=== PATIENT | female | born 1985 | race Caucasian/White ===

== ENCOUNTER 2020-09-14 08:46 | Outpatient (REF) | payer OTHER, SELFPAY ==
--- NOTE | 2020-09-14 16:56 | PFT_ITS ---
FLOWS: FEV1 of 95% of predicted at 3.18 L. FVC 101% of predicted at 4.17 L. FEV1 to FVC ratio of 0.76. No bronchodilator response. LUNG VOLUMES: Total lung capacity 104% of predicted at 5.73 L. Residual volume 98% of predicted at 1.63 L. Slow vital capacity 106% of predicted at 4.10 L. Residual volume 45% of predicted at 0.63 L. Diffusion capacity is normal. IMPRESSION: No obstructive or restrictive ventilatory defect. No bronchodilator response. Decreased expiratory reserve volume suggests extrathoracic restriction likely secondary to abdominal obesity. Huber Toney MD AP/MODL / [id number]
== END 2020-09-14 08:47 | disposition home or self-care (01) ==
LOC: HO.RESP 08:46
PROVIDERS: PCP Nurse Practitioner Family; Visit Provider Internal Medicine
DX: J45.909 Unspecified asthma, uncomplicated (principal); R05 Cough
CPT/HCPCS: 94060; 94727; 94729

== ENCOUNTER 2021-01-29 08:53 | Outpatient (REF) | payer OTHER, SELFPAY ==
[2021-01-29 12:20] LABS: TSH reflex Free T4 1.21 uIU/mL (0.32-4.0)
[2021-01-29 12:45] LABS: Alanine Aminotransferase 48 U/L (0-31); Albumin Level 4.2 g/dL (3.5-5.0); Alkaline Phosphatase 100 U/L (39-117); Anion Gap 12 (12-20); Aspartate Amino Transferase 36 U/L (5-31); Bilirubin Total 0.5 mg/dL (0.0-1.0); Blood Urea Nitrogen 8 mg/dL (9-16); Carbon Dioxide 28 mmol/L (22-29); Chloride 103 mmol/L (96-108); Cholesterol 224 mg/dL; Estimated Glomerular Filt Rate > 60; Glucose Fasting 86 mg/dL (60-99); HDL Cholesterol 44 mg/dL; LDL Cholesterol Calculated 156 mg/dl; Potassium 4.2 mmol/L (3.3-5.1); Sodium 139 mmol/L (135-145); Total Protein 7.6 g/dL (6.5-8.0); Triglycerides 122 mg/dL
== END 2021-01-29 08:54 | disposition home or self-care (01) ==
LOC: HO.HMGCLDS 08:53
PROVIDERS: PCP Nurse Practitioner Family; Visit Provider Nurse Practitioner Family
DX: Z00.00 Encounter for general adult medical examination without abnormal findings (principal)
CPT/HCPCS: 36415; 80053; 80061; 84443

== ENCOUNTER → 2021-03-01 13:18 | Outpatient (BNVA) | payer OTHER, SELFPAY | PROVIDERS: PCP Nurse Practitioner Family; Visit Provider Hospitalist ==

== ENCOUNTER → 2021-03-31 08:48 | Outpatient (REF) | payer OTHER, SELFPAY | LOC: HO.SL 08:48 | PROVIDERS: PCP Nurse Practitioner Family; Visit Provider Hospitalist | DX: G47.30 Sleep apnea, unspecified (principal) | CPT/HCPCS: 95806 ==

== ENCOUNTER → 2021-04-21 09:23 | Outpatient (BNVA) | payer OTHER, SELFPAY | PROVIDERS: PCP Nurse Practitioner Family; Visit Provider Hospitalist ==

== ENCOUNTER → 2021-08-27 10:02 | Outpatient (BNVA) | payer OTHER, SELFPAY | PROVIDERS: PCP Nurse Practitioner Family; Visit Provider Hospitalist ==

== ENCOUNTER 2021-10-01 07:45 | Outpatient (REF) | payer OTHER, SELFPAY ==
[2021-10-01 11:41] LABS: Appearance Urine CLOUDY; Color Urine YELLOW; Glucose Urine UA NEG (NEG); Leukocyte Esterase Urine NEG (NEG); Nitrite Urine NEG (NEG); Specific Gravity - Urine >= 1.030 (1.005-1.025); UACC Culture Trigger NO; Urine Blood TRACE (NEG); Urine Ketones NEG (NEG); Urine Protein TRACE MG/DL (NEG-TRACE)
[2021-10-01 11:48] LABS: Alanine Aminotransferase 15 U/L (0-31); Alkaline Phosphatase 84 U/L (39-117); Anion Gap 13 (12-20); Aspartate Amino Transferase 16 U/L (5-31); Bilirubin Total 0.5 mg/dL (0.0-1.0); Blood Urea Nitrogen 11 mg/dL (9-16); Calcium 9.6 mg/dL (8.4-10.2); Carbon Dioxide 30 mmol/L (22-29); Chloride 101 mmol/L (96-108); Cholesterol 225 mg/dL; Estimated Glomerular Filt Rate > 60; Glucose Fasting 89 mg/dL (60-99); HDL Cholesterol 44 mg/dL; LDL Cholesterol Calculated 160 mg/dl; Potassium 3.8 mmol/L (3.3-5.1); Sodium 140 mmol/L (135-145); Total Protein 7.2 g/dL (6.5-8.0); Triglycerides 108 mg/dL
[2021-10-01 12:27] LABS: Amorphous Sediment Urine 3+ /LPF; Bacteria Urine TRACE /LPF; Calcium Oxalate Crystals Urine 1+ /LPF; RBC Urine 0-2 /HPF (0); Squamous Epithelial Cell Urine 2+ /LPF; WBC Urine 0 /HPF (0-4)
== END 2021-10-01 07:46 | disposition home or self-care (01) ==
LOC: HO.HMGCLDS 07:45
PROVIDERS: Visit Provider Nurse Practitioner Family
DX: Z00.00 Encounter for general adult medical examination without abnormal findings (principal)
CPT/HCPCS: 36415; 80053; 80061; 81001; 84443

== ENCOUNTER → 2021-11-12 07:49 | Outpatient (BNVA) | payer OTHER, SELFPAY | PROVIDERS: PCP Nurse Practitioner Family; Referring Provider Nurse Practitioner Family; Visit Provider Physician Assistant | DX: Z01.818 Encounter for other preprocedural examination (principal); E66.01 Morbid (severe) obesity due to excess calories; I10 Essential (primary) hypertension; G47.30 Sleep apnea, unspecified; K21.9 Gastro-esophageal reflux disease without esophagitis; F90.9 Attention-deficit hyperactivity disorder, unspecified type; Z71.3 Dietary counseling and surveillance | CPT/HCPCS: 99202; 99212 ==

== ENCOUNTER 2021-11-16 08:26 | Outpatient (REF) | payer OTHER, SELFPAY ==
[2021-11-16 08:51] LABS: MANUAL DIFF FLAG NO
[2021-11-16 09:10] LABS: Basophils Percent Auto 0.4 % (0-2); Eosinophils Absolute Auto 0.4 X10*3/uL (0.0-0.4); Eosinophils Percent Auto 3.9 % (0-4); Hematocrit 39.9 % (37.0-47.0); Imm Gran Abs Auto 0.04 X10*3/uL (0.00-0.03); Imm Gran Pct Auto 0.4 % (0.0-0.4); Lymphocytes Absolute Auto 1.5 X10*3/uL (1.2-4.9); Lymphocytes Percent Auto 16.4 % (20-40); Mean Corpuscular HGB Conc 32.6 g/dl (31.0-35.0); Mean Corpuscular Volume 91.9 fL (80.0-98.0); Mean Platelet Volume 9.7 fL (9.4-12.3); Monocytes Absolute Auto 0.5 X10*3/uL (0.1-1.2); Monocytes Percent Auto 5.7 % (2-11); Neutrophils Absolute Auto 6.6 x10*3/uL (2.0-8.3); Neutrophils Percent Auto 73.2 % (45-73); Platelet Count 380 X10*3/uL (160-400); Red Blood Count 4.34 X10*6/uL (4.20-5.50); Red Cell Distribution Width 13.2 % (11.0-16.0); White Blood Count 9.1 X10*3/uL (4.8-10.8)
[2021-11-16 09:20] LABS: Estimated Average Glucose 97 mg/dL
[2021-11-16 09:50] LABS: Alanine Aminotransferase 23 U/L (0-31); Alkaline Phosphatase 86 U/L (39-117); Anion Gap 12 (12-20); Aspartate Amino Transferase 21 U/L (5-31); Bilirubin Total 1.2 mg/dL (0.0-1.0); Blood Urea Nitrogen 10 mg/dL (9-16); C Reactive Protein 2.03 mg/dL (< or = 0.50); Calcium 9.3 mg/dL (8.4-10.2); Carbon Dioxide 28 mmol/L (22-29); Chloride 102 mmol/L (96-108); Cholesterol 219 mg/dL; Estimated Glomerular Filt Rate > 60; Glucose Random 84 mg/dL (60-115); HDL Cholesterol 43 mg/dL; Iron 170 mcg/dL (30-160); LDL Cholesterol Calculated 155 mg/dl; Percent Iron Saturation 44 % (15-50); Sodium 138 mmol/L (135-145); Total Iron Binding Capacity 389 mcg/dL (228-428); Total Protein 7.3 g/dL (6.5-8.0); Triglycerides 107 mg/dL; Unsaturated Iron Binding 219 ug/dL
[2021-11-16 10:00] LABS: Ferritin 47 ng/mL (10-122); TSH reflex Free T4 2.24 uIU/mL (0.32-4.0)
[2021-11-16 10:13] LABS: Folate 6.3 ng/mL (> or = 4.0); Vitamin B12 382 pg/mL (200-900)
[2021-11-16 16:27] LABS: Insulin 12 uU/mL (2-29)
[2021-11-17 15:21] LABS: Calcium (PTHI) 9.4 mg/dL (8.6-10.2); PTHI 101 pg/mL (16-77)
[2021-11-20 06:31] LABS: Zinc 69 mcg/dL (60-130)
[2021-11-23 16:41] LABS: Vitamin B1 10 nmol/L (8-30)
[2021-11-24 00:11] LABS: Vitamin A 31 mcg/dL (38-98)
== END 2021-11-16 08:27 | disposition home or self-care (01) ==
LOC: HO.LAB 08:26
PROVIDERS: PCP Nurse Practitioner Family; Visit Provider Physician Assistant
DX: Z01.818 Encounter for other preprocedural examination (principal); E66.01 Morbid (severe) obesity due to excess calories; I10 Essential (primary) hypertension; G47.30 Sleep apnea, unspecified; K21.9 Gastro-esophageal reflux disease without esophagitis
CPT/HCPCS: 36415; 80053; 80061; 82306; 82607; 82728; 82746; 83036; 83525; 83540; 83970; 84425; 84443; 84590; 84630; 85025; 86140

== ENCOUNTER 2021-11-17 10:41 | Outpatient (REF) | payer OTHER, SELFPAY ==
--- NOTE | ~2021-11-17 | XR_ITS ---
EXAMINATION: XR CHEST CLINICAL INFORMATION: Morbid obesity COMPARISON: April 25, 2006 report only TECHNIQUE: 2 views of the chest were obtained. FINDINGS: No significant abnormality is noted involving the heart, lungs, mediastinum, bony thorax or soft tissues. XR/XR chest 2V IMPRESSION: No acute disease.
--- NOTE | 2021-11-17 10:47 | ECG_ITS ---
Test Reason : E66.01 Blood Pressure : / mmHG Vent. Rate : 094 BPM Atrial Rate : 094 BPM P-R Int : 158 ms QRS Dur : 120 ms QT Int : 372 ms P-R-T Axes : 049 -03 024 degrees QTc Int : 465 ms Normal sinus rhythm RSR' or QR pattern in V1 suggests right ventricular conduction delay Minimal voltage criteria for LVH, may be normal variant ( [place] product ) Borderline ECG No previous ECGs available Referred By: Cira Soto Electronically Signed By:SWEETIE GARCIA
== END 2021-11-17 10:42 | disposition home or self-care (01) ==
LOC: HO.XRAY 10:41
PROVIDERS: PCP Nurse Practitioner Family; Visit Provider Physician Assistant
DX: Z01.818 Encounter for other preprocedural examination (principal); E66.01 Morbid (severe) obesity due to excess calories; K21.9 Gastro-esophageal reflux disease without esophagitis; G47.30 Sleep apnea, unspecified; I10 Essential (primary) hypertension
CPT/HCPCS: 71046; 93005

== ENCOUNTER → 2021-11-22 10:00 | Outpatient (BNVA) | payer OTHER, SELFPAY | PROVIDERS: PCP Nurse Practitioner Family; Visit Provider Counselor Mental Health | DX: Z13.89 Encounter for screening for other disorder (principal) ==

== ENCOUNTER → 2021-11-26 10:18 | Outpatient (BNVA) | payer OTHER, SELFPAY | PROVIDERS: PCP Nurse Practitioner Family; Visit Provider Hospitalist | DX: Z13.89 Encounter for screening for other disorder (principal) ==

== ENCOUNTER → 2021-12-03 09:17 | Outpatient (BNVA) | payer OTHER, SELFPAY | PROVIDERS: PCP Nurse Practitioner Family; Visit Provider Physician Assistant | DX: Z13.89 Encounter for screening for other disorder (principal) ==

== ENCOUNTER 2021-12-03 14:55 | Outpatient (REF) | payer OTHER, SELFPAY ==
[2021-12-05 10:31] LABS: H Pylori Breath Test Negative (Negative)
== END 2021-12-03 14:56 | disposition home or self-care (01) ==
LOC: HO.LNP 14:55
PROVIDERS: Visit Provider Physician Assistant
DX: Z01.818 Encounter for other preprocedural examination (principal); E66.01 Morbid (severe) obesity due to excess calories; G47.30 Sleep apnea, unspecified; I10 Essential (primary) hypertension; K21.9 Gastro-esophageal reflux disease without esophagitis
CPT/HCPCS: 83013

== ENCOUNTER → 2021-12-07 08:03 | Outpatient (BNVA) | payer OTHER, SELFPAY | PROVIDERS: PCP Nurse Practitioner Family; Visit Provider Dietitian, Registered | DX: Z13.89 Encounter for screening for other disorder (principal) ==

== ENCOUNTER → 2021-12-10 08:05 | Outpatient (BNVA) | payer OTHER, SELFPAY | PROVIDERS: PCP Nurse Practitioner Family; Visit Provider Dietitian, Registered | DX: E66.01 Morbid (severe) obesity due to excess calories (principal) | CPT/HCPCS: 97802 ==

== ENCOUNTER → 2021-12-23 08:16 | Outpatient (BNVA) | payer OTHER, SELFPAY | PROVIDERS: PCP Nurse Practitioner Family; Visit Provider Physician Assistant | DX: E66.01 Morbid (severe) obesity due to excess calories (principal) ==

== ENCOUNTER 2021-12-27 08:56 | Outpatient (REF) | payer OTHER, SELFPAY ==
--- NOTE | ~2021-12-27 | US_ITS ---
EXAMINATION: US COMPLETE ABDOMEN WITH LIVER ELASTOGRAPHY CLINICAL INFORMATION: Obesity. COMPARISON: None. TECHNIQUE: Real-time imaging of the abdominal viscera. Noninvasive ultrasound liver fibrosis assessment is performed using Cristy ElastPQ point quantification shear wave elastography (2D-SWE) with a C5-2 MHz transducer. Multiple elastography samples are obtained. FINDINGS: PANCREAS: The visualized pancreatic head and body are normal in appearance. The remainder of the pancreas is obscured from visualization by the overlying bowel gas. ABDOMINAL AORTA: The proximal, middle, and distal aortic segments are normal in caliber. INFERIOR VENA CAVA: Visualized portions are normal. LIVER: The liver demonstrates normal size, contour and diffuse increased echogenicity. No focal lesion or intrahepatic biliary duct dilatation. The right lobe measures 14.5 cm in length. The left lobe measures 11.5 cm in length. Portal flow is hepatopedal. Shear wave liver elastography median stiffness is 1.62 m/s (reference: normal median stiffness is 1.3 m/s or less). IQR/median stiffness to assess sampling precision is 0.36 (reference: good quality data set is IQR/median stiffness of 0.15 or less). GALLBLADDER: The gallbladder is packed with echogenic gallstones without any wall thickening or tenderness. COMMON BILE DUCT: Normal in caliber measuring 0.6 cm in diameter. RIGHT KIDNEY: Normal. No hydronephrosis. No renal calculi or focal parenchymal lesions. The kidney measures 11.6 cm in maximum dimension. LEFT KIDNEY: Normal. No hydronephrosis. No renal calculi or focal parenchymal lesions. The kidney measures 13.5 cm in maximum dimension. SPLEEN: Normal. The spleen measures 11.9 cm in maximum dimension. FREE FLUID: None. US/US abdomen comp w elastography IMPRESSION: 1. Mild hepatic steatosis without focal lesion. 2. Cholelithiasis without wall thickening. 3. The rest of the abdominal ultrasound is unremarkable. 4. Liver elastography: Median liver stiffness 1.62, suggestive of cACLD ruled out. REFERENCE: Society of Radiologists in Ultrasound Liver Stiffness Thresholds (2020): LIVER STIFFNESS THRESHOLDS: *Liver Stiffness equal or less than 1.3 m/s: High probability of being normal. *Liver Stiffness less than 1.7 m/s: In the absence of other known clinical signs, rules out compensated advanced chronic liver disease. *Liver Stiffness 1.7-2.1 m/s: Suggestive of compensated advanced chronic liver disease but need further test for confirmation. *Liver Stiffness over 2.1 m/s: Rules in compensated advanced chronic liver disease. *Liver Stiffness over 2.4 m/s: Suggestive of clinically significant portal hypertension. QUALITY OF DATA SET: *IQR/Median value equal or less than 0.15 implies a quality data set. *IQR/Median value over 0.15 implies a poor quality data set. SIGNIFICANT CHANGE FROM PRIOR EXAM: Significant change if liver stiffness measurement is 10% or greater from prior exam. OTHER CONSIDERATIONS: The stage of liver fibrosis may be overestimated in the setting of acute hepatitis, liver inflammation, elevated liver function tests, hepatic vascular congestion, obstructive cholestasis, non-fasting state, and infiltrative diseases such as amyloidosis and lymphoma. In some patients with NAFLD, the liver stiffness thresholds for compensated advanced chronic liver disease may be lower. In causes other than viral hepatitis and NAFLD, liver stiffness thresholds are not well established.
--- NOTE | ~2021-12-27 | FL_ITS ---
EXAMINATION: XR FLUOROSCOPY UPPER GI WITH AIR CLINICAL INFORMATION: Obesity COMPARISON: Previous exam March 2012 TECHNIQUE: Upper GI was performed using thin and thick barium and effervescent granules FINDINGS: Esophageal motility is normal. There is gastroesophageal reflux. No hernia is seen. The stomach and duodenum are normal-appearing. No fold thickening, mass, ulcer or stricture is seen. FLUOROSCOPY TIME: 0.6 minutes DOSE AREA PRODUCT: 0.7 mccollum per centimeter squared FL/FL upper GI w air IMPRESSION: Gastroesophageal reflux otherwise unremarkable exam.
== END 2021-12-27 08:57 | disposition home or self-care (01) ==
LOC: HO.US 08:56
PROVIDERS: PCP Nurse Practitioner Family; Visit Provider Physician Assistant
DX: Z01.818 Encounter for other preprocedural examination (principal); E66.01 Morbid (severe) obesity due to excess calories; K21.9 Gastro-esophageal reflux disease without esophagitis; I10 Essential (primary) hypertension; G47.30 Sleep apnea, unspecified
CPT/HCPCS: 74246; 76705; 76981

== ENCOUNTER → 2022-01-24 14:30 | Outpatient (BNVA) | payer OTHER, SELFPAY | PROVIDERS: PCP Nurse Practitioner Family; Visit Provider Physician Assistant | DX: Z13.89 Encounter for screening for other disorder (principal) ==

== ENCOUNTER 2022-02-03 08:10 | Outpatient (REF) | payer OTHER, SELFPAY ==
[2022-02-03 11:09] LABS: MANUAL DIFF FLAG NO
[2022-02-03 11:26] LABS: Basophils Percent Auto 0.5 % (0-2); Eosinophils Absolute Auto 0.2 X10*3/uL (0.0-0.4); Eosinophils Percent Auto 3.2 % (0-4); Hematocrit 40.7 % (37.0-47.0); Hemoglobin 13.5 g/dl (12.0-16.0); Imm Gran Abs Auto 0.02 X10*3/uL (0.00-0.03); Imm Gran Pct Auto 0.3 % (0.0-0.4); Lymphocytes Absolute Auto 1.6 X10*3/uL (1.2-4.9); Lymphocytes Percent Auto 21.2 % (20-40); Mean Corpuscular HGB Conc 33.2 g/dl (31.0-35.0); Mean Corpuscular Volume 90.4 fL (80.0-98.0); Mean Platelet Volume 11.2 fL (9.4-12.3); Monocytes Absolute Auto 0.5 X10*3/uL (0.1-1.2); Monocytes Percent Auto 7.3 % (2-11); Neutrophils Absolute Auto 4.9 x10*3/uL (2.0-8.3); Neutrophils Percent Auto 67.5 % (45-73); Platelet Count 398 X10*3/uL (160-400); Red Cell Distribution Width 13.5 % (11.0-16.0); White Blood Count 7.3 X10*3/uL (4.8-10.8)
[2022-02-03 11:26] LABS: Appearance Urine CLEAR; Color Urine YELLOW; Glucose Urine UA NEG (NEG); Leukocyte Esterase Urine NEG (NEG); Nitrite Urine NEG (NEG); Specific Gravity - Urine 1.015 (1.005-1.025); Urine Blood NEG (NEG); Urine Ketones 5 MG/DL (NEG); Urine Protein NEG (NEG-TRACE)
[2022-02-03 11:37] LABS: Alanine Aminotransferase 23 U/L (0-31); Albumin Level 4.3 g/dL (3.5-5.0); Alkaline Phosphatase 71 U/L (39-117); Anion Gap 14 (12-20); Aspartate Amino Transferase 22 U/L (5-31); Bilirubin Total 0.5 mg/dL (0.0-1.0); Blood Urea Nitrogen 15 mg/dL (9-16); Calcium 9.2 mg/dL (8.4-10.2); Carbon Dioxide 25 mmol/L (22-29); Chloride 102 mmol/L (96-108); Cholesterol 210 mg/dL; Estimated Glomerular Filt Rate > 60; Glucose Fasting 101 mg/dL (60-99); HDL Cholesterol 37 mg/dL; LDL Cholesterol Calculated 156 mg/dl; Potassium 3.6 mmol/L (3.3-5.1); Sodium 137 mmol/L (135-145); Total Protein 7.6 g/dL (6.5-8.0); Triglycerides 88 mg/dL
[2022-02-03 12:02] LABS: TSH reflex Free T4 2.23 uIU/mL (0.32-4.0)
== END 2022-02-03 08:11 | disposition home or self-care (01) ==
LOC: HO.HMGCLDS 08:10
PROVIDERS: PCP Nurse Practitioner Family; Visit Provider Nurse Practitioner Family
DX: Z00.00 Encounter for general adult medical examination without abnormal findings (principal)
CPT/HCPCS: 36415; 80053; 80061; 81003; 84443; 85025

== ENCOUNTER 2022-05-05 10:58 | Outpatient (REF) | payer OTHER, SELFPAY | END 2022-05-05 10:59 | disposition home or self-care (01) | LOC: HO.LAB 10:58 | PROVIDERS: PCP Nurse Practitioner Family; Visit Provider Surgery | DX: Z13.89 Encounter for screening for other disorder (principal) ==

== ENCOUNTER 2022-05-12 08:11 | Inpatient (IN) | payer OTHER, SELFPAY ==
[2022-05-02 10:26] VITALS: BMI 53.0
[2022-05-05 11:28] LABS: MANUAL DIFF FLAG NO
[2022-05-05 11:59] LABS: Basophils Absolute Auto 0.1 X10*3/uL (0.0-0.2); Basophils Percent Auto 0.6 % (0-2); Eosinophils Absolute Auto 0.4 X10*3/uL (0.0-0.4); Hematocrit 40.4 % (37.0-47.0); Hemoglobin 13.7 g/dl (12.0-16.0); Imm Gran Abs Auto 0.04 X10*3/uL (0.00-0.03); Imm Gran Pct Auto 0.4 % (0.0-0.4); Lymphocytes Absolute Auto 1.6 X10*3/uL (1.2-4.9); Lymphocytes Percent Auto 16.7 % (20-40); Mean Corpuscular HGB Conc 33.9 g/dl (31.0-35.0); Mean Corpuscular Hemoglobin 30.4 pg (27.0-33.0); Mean Corpuscular Volume 89.6 fL (80.0-98.0); Mean Platelet Volume 10.6 fL (9.4-12.3); Monocytes Absolute Auto 0.7 X10*3/uL (0.1-1.2); Monocytes Percent Auto 7.7 % (2-11); Neutrophils Absolute Auto 6.7 x10*3/uL (2.0-8.3); Neutrophils Percent Auto 70.6 % (45-73); Platelet Count 395 X10*3/uL (160-400); Red Blood Count 4.51 X10*6/uL (4.20-5.50); Red Cell Distribution Width 13.2 % (11.0-16.0); White Blood Count 9.5 X10*3/uL (4.8-10.8)
[2022-05-05 12:03] LABS: INTERNATIONAL NORM RATIO 1.1 (0.9-1.1); Prothrombin Time 12.1 SEC (10.0-13.1)
[2022-05-05 12:04] LABS: Estimated Average Glucose 94 mg/dL; Hemoglobin A1c % 4.9 %
[2022-05-05 12:06] LABS: Partial Thromboplastin Time 40.6 SEC (26.0-36.4)
[2022-05-05 12:22] LABS: Alanine Aminotransferase 22 U/L (0-31); Albumin Level 4.2 g/dL (3.5-5.0); Alkaline Phosphatase 77 U/L (39-117); Anion Gap 15 (12-20); Aspartate Amino Transferase 22 U/L (5-31); Bilirubin Total 0.6 mg/dL (0.0-1.0); Blood Urea Nitrogen 12 mg/dL (9-16); C Reactive Protein 1.46 mg/dL (< or = 0.50); Calcium 9.7 mg/dL (8.4-10.2); Carbon Dioxide 29 mmol/L (22-29); Chloride 100 mmol/L (96-108); Cholesterol 200 mg/dL; Creatinine Clr Calc Pharmacy 159.5; Estimated Glomerular Filt Rate > 60; Glucose Random 85 mg/dL (60-115); HDL Cholesterol 32 mg/dL; LDL Cholesterol Calculated 155 mg/dl; Potassium 3.5 mmol/L (3.3-5.1); Sodium 140 mmol/L (135-145); Total Protein 7.4 g/dL (6.5-8.0); Triglycerides 68 mg/dL
[2022-05-05 12:43] LABS: Insulin 11 uU/mL (2-29); TSH reflex Free T4 2.52 uIU/mL (0.32-4.0)
[2022-05-05 13:10] LABS: Appearance Urine Cloudy; Color Urine Yellow; Glucose Urine UA Negative (Negative); Leukocyte Esterase Urine Trace (Negative); Nitrite Urine Negative (Negative); Specific Gravity - Urine 1.025 (1.005-1.025); UMIC TRIGGER UACC YES; Urine Blood Negative (Negative); Urine Ketones 80 mg/dL (Negative); Urine Protein Trace mg/dL (Neg-Trace)
[2022-05-05 13:22] LABS: Bacteria Urine 2+ (None Seen); Hyaline Casts Urine 0-2 /LPF (0-2); WBC Urine 0-5 /HPF (0-5)
--- NOTE | 2022-05-07 00:16 | MHC.SHP ---
Pre-Procedural Eval Section A Date of Service: 05/07/22 The patient is an INPATIENT: No The History & Physical has been completed within 30 days and I have reviewed it.: Yes Section B Chief Complaint: obesity Relevant Family History (Specify if Yes): No Relevant Social History: None Present Medications: None Medical History: No relevant PMH History of Previous Operations: No relevant previous surgery Allergies: Allergies Allergy/AdvReac Type Severity Reaction Status Date / Time apple [Apple] Allergy Severe itchy Verified 04/29/22 08:18 throat severe becerril Allergy Severe severe Verified 04/29/22 08:18 itchy throat pecan nut Allergy Intermediate itchy Verified 04/29/22 08:18 throat penicillin V AdvReac Severe GI upset Verified 04/29/22 08:18 prednisone AdvReac Intermediate diarrhea Verified 04/29/22 08:18 fruit skins Allergy Severe itchy Uncoded 04/29/22 12:01 throat Review of Systems Sugical H&P ROS: Negative: Constitution, Cardiovascular, Respiratory, Neurological, Psychiatric, Hem-Onc, Allergic/Immunologic, Gastrointestinal, Genitourinary, Musculoskeletal, Integumentary, Endocrine and Eyes/Ears/Nose/Throat Exam Surgical H&P Exam: Normal: HEENT, Normal: Heart, Normal: Lungs, Normal: Extremities, Normal: Abdomen, Normal: Skin and Normal: Neurological Plan Diagnosis/Plan: Unchanged I have reviewed the history and physical and performed a pertinent physical examination on my patient. No changes have occurred unless specified.
[2022-05-11 12:51] LABS: COVID-19 Test Negative (Negative); IDNOW Serial# 16C4AD1C
[2022-05-12] VITALS (13 sets, daily range): BP systolic 116–147; BP diastolic 60–89; PULSE 70–99; RESP 10–18; TEMP 36.1–37.7; O2SAT 93–96
[2022-05-12 08:30] LABS: UPreg QC Valid YES; Urine Pregnancy NEGATIVE (NEGATIVE)
[2022-05-12] MEDS: Lactated Ringers 1,000 ML 999 ML IV (08:40)
--- NOTE | 2022-05-12 08:45 | PHA.MEDREC ---
Pharmacy Consult ? Medication Reconciliation Pharmacy has completed the medication reconciliation.
--- NOTE | 2022-05-12 08:52 | HO.ANESPROP2 ---
HPI - Anesthesia Eval Consult details Narrative: 36 F for gastric sleeve PMFSH Active Problems Active Problems: All Active Problems (Updated 05/02/22 @ 10:25 by Tanya Jefferson RN) GERD (gastroesophageal reflux disease) (Acute) Cough due to JEMMA inhibitor (Acute) Physical exam (Acute) Family history of breast cancer in female (Acute) Sleep apnea in adult (Acute) Physical exam (Acute) Pre-op evaluation (Acute) Moderate binge-eating disorder (Acute) Physical exam (Acute) Lower back pain (Acute) Sleep apnea with use of continuous positive airway pressure (CPAP) (Acute) Morbid obesity (Acute) HTN (hypertension) (Acute) Reactive airway disease (Acute) Recurrent cough (Acute) ADHD (Acute) Past Medical History Medical History (Updated 05/12/22 @ 15:43 by Dudley Peralta MD) ADHD Anxiety ASCUS with positive high risk HPV LUCITA I (cervical intraepithelial neoplasia I) Depression GERD (gastroesophageal reflux disease) HTN (hypertension) Morbid obesity Premenstrual dysphoric disorder Reactive airway disease Recurrent cough Sleep apnea Functional capacity: independent ambulation Family History Family History Mother Cancer of thyroid Guillain Leon? syndrome Hypertension Anemia Brother Lupus Maternal Grandmother Colon cancer Breast cancer Father Hypertension High cholesterol Diabetes 1.5, managed as type 2 Heart problem Brother No problems noted. Family history of problems with anesthesia: No Surgical History Surgical History (Updated 05/12/22 @ 12:58 by Cira Soto PA-C) [place] teeth extracted History of Problems with Anesthesia: No Social History Social History Household Members: Spouse Housing: Apartment Are you a primary medicare contact specialist to a significant other at home: No Do you presently have visiting nurse or other home services: No Alcohol intake: current Alcohol intake frequency: a few times a month Alcohol type: wine and hard liquor Patient Tobacco Use Status: Never used Tobacco e-Cigarette/Vaping Use: Never Used Use of substances other than those prescribed or required for medical reasons: Yes Substance Use Type: Marijuana Substance Use Type Other:: edibles-none since 02/2022 Substance Use Frequency: Socially Last Used Substance: Weeks (ago) Currently Displaying Signs/Symptoms of Drug Intoxication Withdrawal: No Have you been hit, kicked, punched, or otherwise hurt by someone within the past year? If so, by whom?: No Do you feel safe in your current relationship?: Yes Is there a partner from a previous relationship who is making you feel unsafe now?: No Are you made to feel afraid or neglected: No [employer] Healthcare Practices: jain Are you DNR?: No Advance Directives: No Advance Directives Information Provided: Yes (brochure mailed) Advance Directives on File: No Do you have thoughts of harming others: None Do you have a plan to hurt others: No Plan Recently lost weight without trying: No Eating poorly because of decreased appetite: No Nutrition Risks: No Nutritional Risk Patient : No FDLMP: 04/18/22 : No Poor oral hygiene: No Current occupational status: employed Cognitive needs: No Hearing needs: No Vision needs: No Meds Allergies Allergy/AdvReac Type Severity Reaction Status Date / Time apple [Apple] Allergy Severe itchy Verified 05/12/22 08:28 throat severe becerril Allergy Severe severe Verified 05/12/22 08:28 itchy throat pecan nut Allergy Intermediate itchy Verified 05/12/22 08:28 throat penicillin V AdvReac Severe GI upset Verified 05/12/22 08:28 prednisone AdvReac Intermediate diarrhea Verified 05/12/22 08:28 fruit skins Allergy Severe itchy Uncoded 04/29/22 12:01 throat Active Medications: Current Medications Lactated Ringer's (Lr) 1,000 mls @ 999 mls/hr IV .Q1H1M [facility] Stop: 05/12/22 10:15 Last Admin: 05/12/22 08:40 Dose: 999 mls/hr Levofloxacin (Levaquin) 500 mg in 100 mls @ 100 mls/hr IV PREOP ONE Stop: 05/12/22 09:10 Lactated Ringer's (Lr) 1,000 mls @ 50 mls/hr IVCONT .Q20H [facility] Home Medications Medication Instructions Recorded Confirmed Last Taken Type fluoxetine 40 mg capsule 40 mg PO DAILY 01/06/21 05/12/22 05/11/22 History multivitamin (Daily Multi-Vitamin 1 tab PO DAILY 11/12/21 05/12/22 05/11/22 History tablet) cholecalciferol (vitamin D3) 125 125 mcg PO DAILY 11/26/21 05/12/22 05/11/22 History mcg (5,000 unit) capsule dextroamphetamine-amphetamine 10 1 tab PO BID 03/28/22 05/12/22 05/10/22 History mg tablet loratadine 10 mg tablet 10 mg PO DAILY 05/02/22 05/02/22 05/11/22 History ondansetron HCl 4 mg tablet 4 mg PO Q12H PRN Nausea And 05/12/22 05/12/22 Unknown History Vomiting Exam Exam Date and Time: May 12, 2022 0852 Height,Weight and Vital Signs: Height 5 ft 7 in Weight 153.677 kg Last Vital Signs Temp 97.2 F 05/12/22 08:35 Pulse 99 05/12/22 08:35 Resp 18 05/12/22 08:35 BP 147/89 H 05/12/22 08:35 Pulse Ox 95 05/12/22 08:35 O2 Del Method 05/12/22 08:35 Pertinent Lab Results Pertinent Lab Results: Laboratory Tests 05/05/22 05/05/22 05/05/22 11:18 11:20 11:26 WBC 9.5 RBC 4.51 Hgb 13.7 Hct 40.4 MCV 89.6 MCH 30.4 MCHC 33.9 RDW 13.2 Plt Count 395 MPV 10.6 Immature Gran % (Auto) 0.4 Neut % (Auto) 70.6 Lymph % (Auto) 16.7 L [place] % (Auto) 7.7 Eos % (Auto) 4.0 Baso % (Auto) 0.6 Lymph # (Auto) 1.6 [place] # (Auto) 0.7 Eos # (Auto) 0.4 Baso # (Auto) 0.1 Abs Immat Gran (auto) 0.04 H Absolute Neuts (auto) 6.7 Absolute Nucleated RBC 0.000 Nucleated RBC % (auto) 0.0 PT INR APTT Sodium Potassium Chloride Carbon Dioxide Anion Gap BUN Creatinine Estim Creat Clear Calc Estimated GFR Random Glucose Estimat Average Glucose Hemoglobin A1c % Insulin Level Calcium Total Bilirubin AST ALT Alkaline Phosphatase C-Reactive Protein Total Protein Albumin Triglycerides Cholesterol LDL Cholesterol, Calc HDL Cholesterol TSH Urine Color Yellow Urine Appearance Cloudy Urine pH 6.0 Ur Specific [place] 1.025 Urine Protein Trace Urine Glucose (UA) Negative Urine Ketones 80 Urine Blood Negative Urine Nitrite Negative Ur Leukocyte Esterase Trace H Urine RBC 3-5 H Urine WBC 0-5 Ur Squamous Epith Cells 11-20 Urine Bacteria 2+ Hyaline Casts 0-2 Urine Test COVID-19 (TANVI) COVID-19 [place] Com Blood Type A Positive Antibody Screen NEGATIVE 05/05/22 05/05/22 05/05/22 11:26 11:26 11:26 WBC RBC Hgb Hct MCV MCH MCHC RDW Plt Count MPV Immature Gran % (Auto) Neut % (Auto) Lymph % (Auto) [place] % (Auto) Eos % (Auto) Baso % (Auto) Lymph # (Auto) [place] # (Auto) Eos # (Auto) Baso # (Auto) Abs Immat Gran (auto) Absolute Neuts (auto) Absolute Nucleated RBC Nucleated RBC % (auto) PT 12.1 INR 1.1 APTT 40.6 H Sodium 140 Potassium 3.5 Chloride 100 Carbon Dioxide 29 Anion Gap 15 BUN 12 Creatinine 0.75 Estim Creat Clear Calc 159.5 Estimated GFR > 60 Random Glucose 85 Estimat Average Glucose 94 Hemoglobin A1c % 4.9 Insulin Level 11 Calcium 9.7 Total Bilirubin 0.6 AST 22 ALT 22 Alkaline Phosphatase 77 C-Reactive Protein 1.46 H Total Protein 7.4 Albumin 4.2 Triglycerides 68 Cholesterol 200 LDL Cholesterol, Calc 155 HDL Cholesterol 32 TSH 2.52 Urine Color Urine Appearance Urine pH Ur Specific [place] Urine Protein Urine Glucose (UA) Urine Ketones Urine Blood Urine Nitrite Ur Leukocyte Esterase Urine RBC Urine WBC Ur Squamous Epith Cells Urine Bacteria Hyaline Casts Urine Test COVID-19 (TANVI) COVID-19 Clin Com Blood Type Antibody Screen 05/11/22 05/12/22 12:27 07:35 WBC RBC Hgb Hct MCV MCH MCHC RDW Plt Count MPV Immature Gran % (Auto) Neut % (Auto) Lymph % (Auto) [place] % (Auto) Eos % (Auto) Baso % (Auto) Lymph # (Auto) [place] # (Auto) Eos # (Auto) Baso # (Auto) Abs Immat Gran (auto) Absolute Neuts (auto) Absolute Nucleated RBC Nucleated RBC % (auto) PT INR APTT Sodium Potassium Chloride Carbon Dioxide Anion Gap BUN Creatinine Estim Creat Clear Calc Estimated GFR Random Glucose Estimat Average Glucose Hemoglobin A1c % Insulin Level Calcium Total Bilirubin AST ALT Alkaline Phosphatase C-Reactive Protein Total Protein Albumin Triglycerides Cholesterol LDL Cholesterol, Calc HDL Cholesterol TSH Urine Color Urine Appearance Urine pH Ur Specific [place] Urine Protein Urine Glucose (UA) Urine Ketones Urine Blood Urine Nitrite Ur Leukocyte Esterase Urine RBC Urine WBC Ur Squamous Epith Cells Urine Bacteria Hyaline Casts Urine Test NEGATIVE COVID-19 (TANVI) Negative COVID-19 Clin Com See Note Blood Type Antibody Screen Airway Mallampati Class: III TM Dist: >3cm Neck ROM: Full Loose/Missing/Broken Teeth: Yes (Multiple chipped , missing teeth ,caps , fillings ) Heart: S1,S2 Lungs: b/l breath sounds Assessment and Plan Assessment Anesthesia Assessment: Anesthesia Plan Discussed and Chart Reviewed Final Anesthetic Review Family History of Problems with Anesthesia: No History of Problems with Anesthesia: No NPO: Yes ASA Class: III Final Preanesthetic Review: Meds/Allgs Chart Reviewed, Consent Obtained/Reviewed and Anes Risks/Benef Reviewed Patient Risk: Intermediate Procedure Risk: Intermediate Anesthetic Plan Anesthetic Plan: GA Disposition: Standard PACU
--- NOTE | 2022-05-12 10:11 | P.PNGS_ITS ---
Subjective Subjective Date of Service: 05/13/22 Interval history: Patient has mild incisional pain, but was able to ambulate and use the incentive spirometer. She is tolerating phase 1 bariatric diet Physical Exam Vital Signs: Vital Signs: Last Vital Signs Temp 97.2 F 05/12/22 08:35 Pulse 99 05/12/22 08:35 Resp 18 05/12/22 08:35 BP 147/89 H 05/12/22 08:35 Pulse Ox 95 05/12/22 08:35 O2 Del Method 05/12/22 08:35 BMI result Body Mass Index 53.0 GI: Inspection: Yes normal to inspection, Yes incision (clean, dry and intact) and Yes obesity Extrem: Right lower extremity: normal to inspection (no calf tenderness) Left lower extremity: normal to inspection (no calf tenderness) Objective Data Active Medications Fentanyl (Fentanyl Citrate/Pf 100 Mcg/2 Ml Vial) 25 mcg IVPUSH Q5M PRN; Protocol PRN Reason: Pain, Moderate (Pain Scale 4-6 Hydromorphone HCl (Hydromorphone Hcl 0.5 Mg/0.5 Ml Syringe) 0.25 mg IVPUSH Q5M PRN; Protocol PRN Reason: Pain, Severe (Pain Scale 7-10) Lactated Ringer's (Lr) 1,000 mls @ 999 mls/hr IV .Q1H1M [facility] Stop: 05/12/22 10:15 Last Admin: 05/12/22 08:40 Dose: 999 mls/hr Documented By: ZULEMA Lactated Ringer's (Lr) 1,000 mls @ 50 mls/hr IVCONT .Q20H [facility] Promethazine HCl 6.25 mg/ (Sodium Chloride) 50.25 mls @ 201 mls/hr IV ONCE PRN PRN Reason: Nausea and Vomiting Labs CBC & Chem 7: 05/13/22 05:54 05/13/22 06:00 Labs: Laboratory Results - last 24 hr 05/11/22 05/12/22 12:27 07:35 Urine Test NEGATIVE COVID-19 ([facility]ANVI) Negative COVID-19 Clin Com See Note Procedures Date of Service Date of Service: 05/13/22 Progress Note: A&P Assessment and plan (1) Morbid obesity: Status: Acute Assessment and Plan: s/p laparoscopic sleeve gastrectomy, lysis of adhesions and gastropexy Doing well Check am labs. If OK, will discharge home? 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
--- NOTE | 2022-05-12 10:14 | PM.OP ---
Brief Operative Note Date of Service: 05/12/22 Pre-op diagnosis: Morbid obesity with comorbidities (see below) Post-op diagnosis: same Procedure: INITIAL PATIENT BMI ON PRESENTATION AT OUR OFFICE: 61 kg/m2 LAST BMI BEFORE SURGERY: 53.1 kg/m2 COMORBIDITIES: sleep apnea on CPAP, liver fibrosis, GERD, cholelithiasis, depression, anxiety, hypertension, LUCITA I, ADHD ?The patient presented to the Weight Management Program with significant obesity that was negatively impacting the patient's comorbidities as listed above.? The program is a phased program with a special focus on preoperative medical weight management to promote substantial weight loss and prepare the patients for the second phase of the program: bariatric surgery. The patient participated in an intensive weekly lifestyle ?intervention and exercise program during which the patient ?has lost between the initial office visit and the last preoperative visit 49.9 lbs, or 12.8% of initial actual body weight. It was deemed appropriate for the patient to now have bariatric surgery. In light of the current Covid-19 pandemic and the well documented strong association of obesity and increased risk of worse outcomes if infected with Covid-19 (REFERENCES:https://pubmed.ncbi.nlm.nih.gov/90631407/,?https://pubmed.ncbi.nlm.nih.gov/94068947/), any delay in undergoing bariatric surgery may lead to the patient's worsening health condition and increased?risk of more severe Covid-19 disease if infected. In addition a recent?study from [facility] published in [facility] on 08/16/2021 ([email or web address]) found that, among patients with obesity, substantial weight loss achieved with surgery was associated with improved outcomes of COVID-19 infection. The findings suggest that obesity can be a modifiable risk factor for the severity of COVID-19 infection. In addition, the patient met the BMI-criteria for bariatric surgery based on the BMI on initial presentation. The patient should not be penalized for achieving such weight loss because ?it is not sustainable long-term without surgical intervention and it was achieved in preparation for bariatric surgery ?under my direction and based on my published research ([email or web address] and?https://www.soard.org/article/[email or web address])15482-X/pdf) ?that a 10% preoperative weight loss improves long-term weight loss after surgery and reduces perioperative complications.? Insurance carriers such as [facility] have endorsed my recommendations ?and have included in their policies criteria to include a 10% preoperative weight loss requirement. PROCEDURE: Esophago-gastroscopy, laparoscopic lysis of adhesions, laparoscopic sleeve gastrectomy and laparoscopic gastropexy INDICATIONS: This is a 36 year-old female who was electively scheduled for laparoscopic, possibly open sleeve gastrectomy. The risks and complications of the procedure were discussed with the patient in advance, particularly the possibility of ; pulmonary embolism; staple line leak; bleeding; GERD; cardiac, pulmonary, or renal complications; as well as long-term problems such as insufficient weight loss, vitamin deficiency, strictures, or ulcers. The patient understood all the risks, and was in agreement to proceed with surgery. DESCRIPTION OF PROCEDURE: After informed consent was obtained from the patient, the patient was given preoperative antibiotics, and was transferred to the operating room. After successful induction of general anesthesia, pneumatic compression devices were placed on both lower extremities. An upper endoscopy was performed next. The oropharynx and esophagus appeared to be within normal limits. There was no diaphragmatic hernia present consistent with the findings of the preoperative upper GI. The stomach was entered. Then after all fluid and air were suctioned and the stomach was fully decompressed, the scope was withdrawn and secured in the mid esophagus. The patient was then prepped and draped in the usual sterile manner, and abdominal access was established at the right upper quadrant with the Uriel technique. A 12 mm blunt port was inserted, and the abdomen was insufflated with CO2 to a pressure of 15 mmHg. Under direct visualization, additional ports were placed, specifically two 5 mm Versi-step ports to the left upper quadrant, and a 5 mm Versi-Step port to the right upper quadrant. 1% lidocaine plain was used to infiltrate all port sites as well as all fascia defects. Using the EndoClose suture passer device, I placed a #1 Polysorb tie across the falciform ligament in order to retract it up against the abdominal wall and prevent injury of the ligament with our instruments during the procedure. Following that, the patient was placed in a steep reverse Trendelenburg position. An additional 5 mm port was placed to the right flank for the Mediflex retractor that was used to retract the left lobe of the liver. The gastro-esophageal fat pad was opened with the ultrasonic device (Thunderbeat, Olympus) and the anterior esophagus and hiatus were exposed. The angle of His was opened with the ultrasonic device the fundus of the stomach from any diaphragmatic and splenic attachments. I then opened the gastrocolic ligament between the transverse colon and the greater curvature of the stomach with the ultrasonic device to enter the lesser sac and facilitate the ligation of the short gastric vessels. I started at a mid-point along the greater curvature and using the Thunderbeat, all short gastric vessels were divided all the way to the angle of His until the left marshall was completely dissected at its entirety. I then divided the gastro-colic ligament distally to a distance of about 3-4 cm proximal to the pylorus. There were extensive congenital adhesions between the pancreas and posterior gastric wall. Those were lysed completely with the ultrasonic device. Adhesiolysis took approximately 45 min to complete. The stomach was then divided transversely with one Endo COLE-45 purple, one COLE-45 orange load and four COLE-60 articulating orange loads using the AEON stapler and loads. Every effort was made that the gastric sleeve had a tubular shape and an even caliber throughout. Once the sleeve resection was completed, the staple line of the gastric sleeve was reinforced with Hemoclips. The resected stomach was retrieved without difficulty from the Uriel port. A gastropexy was then performed in order to prevent postoperative GERD and partial gastric volvulus. Several interrupted 2.0 Surgidac sutures were placed between the sleeve's staple line and the previously divided greater omentum and gastro-colic ligament using the Endo-Stitch device. ?An upper endoscopy was performed. There was no narrowing at the GE junction. The scope was easily advanced all the way to the pylorus which was clearly visualized. There was no narrowing anywhere and the sleeve's caliber was even throughout. The sleeve's staple line was inspected and there was no evidence of ischemia, bleeding or dehiscence. At that point the gastroscope was withdrawn from the patient?s mouth while we were decompressing the bowel and the stomach from any remaining air. I looked into the lesser sac to see how the sleeve was situating and it was situating well. There was no bleeding from the staple line, spleen, or short gastric vessels. The Mediflex retractor was removed, and the undersurface of the liver was inspected and there was no bleeding. The patient was placed in supine position. I closed the fascial defect of the 12 mm port site with a figure of eight #1 Polysorb suture. Then 30cc of Ropivacaine plain with 10 mg of Dexamethasone were used to infiltrate the fascial closure as well as all skin incisions. A total of 7 ml of Zynrelef was applied in the Uriel wound. At this point, the abdomen was deflated, all ports were removed under direct vision, and no bleeding was noted from any of the port sites. The skin incisions were irrigated with saline and were closed with 4-0 absorbable monofilament sutures. Steri-Strips and OpSites were used to cover all incisions. The patient was extubated and was transferred in stable condition to the recovery room for further care. I was present and performed all coronado parts of the procedure. Soto was the first crusher. There were no residents to assist with this case. Kal Peralta MD, PhD, FACS Surgeon: Dudley Peralta MD Anesthesia: GETA, local and other (TAP block and 7ml Zynrelef ) Was an Pantograph Engraver used for this Procedure?: No Pantograph Engraver: Cira Soto Estimated blood loss (mL): 10 IV fluids (mL): 2,000 Urine output (mL): 0 (No Lawrence to record) Pathology: other (Stomach) Condition: stable Disposition: PACU
[2022-05-12] MEDS: levoFLOXacin/D5W 500 MG/100 ML PIGGYBACK 100 MG IV (10:25)
--- NOTE | 2022-05-12 13:01 | PM.DS ---
DS: Providers Provider Date of Service: 05/13/22 Date of admission: 05/12/22 08:11 Primary care physician: Quentin Lozoya MANAGER ASSESSMENTLynnette DS: Diagnosis Discharge Diagnosis (1) Morbid obesity: Status: Acute (2) HTN (hypertension): Status: Acute (3) ADHD: Status: Acute (4) GERD (gastroesophageal reflux disease): Status: Acute (5) Depression: Status: Acute (6) Anxiety: Status: Acute (7) Liver fibrosis: Status: Acute DS: Summary Hospital Course Hospital Course: ADMITTING DIAGNOSIS: morbid obesity, sleep apnea, HTN, ADHD DISCHARGE DIAGNOSIS: same, s/p laparoscopic sleeve gastrectomy PAST SURGICAL HISTORY: none PROCEDURE: upper endoscopy, laparoscopic sleeve gastrectomy DISCHARGE SUMMARY: History of Present Illness: The patient is a 36 year-old woman with a BMI of 61.0 kg/m2 and associated co-morbidities as described above. The patient had extensive work-up,lost 49.9 lbs preoperatively and was electively scheduled for laparoscopic, possible open sleeve gastrectomy and gastropexy. Risks and complications of the surgery were discussed with the patient in advance, particularly the possibility of , pulmonary embolism, anastomotic leak, bleeding, bowel injury, GERD, cardiac, renal or pulmonary complications. The patient understood all the risks and was in agreement with the surgical plan. Hospital Course: The patient underwent an uneventful laparoscopic sleeve gastrectomy with gastropexy on the day of admission. Postoperatively, the patient was transferred to the surgical floor. The patient received IV Acetaminophen and IV dilaudid for pain control. Patient was started on bariatric phase 1 diet POD #0. On postoperative day one, the patient was feeling well without nausea, vomiting, fevers, or tachycardia. The patient had some mild incisional pain and the abdomen was soft. On the morning of postoperative day one, the patient was continued on 1 ounce of water or ice every half hour. During the day, the patient did fairly well, having some incisional pain, but able to ambulate adequately and to tolerate liquids well. Since the patient is doing well, we decided that the patient was ready to be discharged. The patient was given instructions to follow-up with me next week and to call my office for any fever over 101, persistent abdominal pain, nausea, vomiting, GERD, symptoms of DVT such as calf tenderness, or leg swelling, or pulmonary embolism such as chest pain or shortness of breath. The patient was also instructed to drink 40-60 ounces of liquids per day using the 1-ounce cups. The patient had been given prescriptions for Tylenol for pain, Zofran prn for nausea, and pantoprazole and carafate previously. The patient was encouraged to ambulate and use the incentive spirometer. The patient was allowed to shower, but no baths, and encouraged to stay active at home. All of these instructions were given to the patient personally. All questions were answered and the patient understood all instructions, the instructions were also given to the patient in print. Time Spent with Patient Time attestation: Total time spent providing and/or coordinating discharge services: Discharge coordination time: Less than 30 minutes Quality: Safe Use of Opioids Does Pt have an Active Cancer Diagnosis on the Problem List?: No Quality: Stroke Does the patient have a stroke diagnosis?: No Physical Exam Vital Signs: Vital Signs: Last Vital Signs Temp 97.2 F 05/12/22 08:35 Pulse 99 05/12/22 08:35 Resp 18 05/12/22 08:35 BP 147/89 H 05/12/22 08:35 Pulse Ox 95 05/12/22 08:35 O2 Del Method 05/12/22 08:35 BMI result Body Mass Index 53.0 DS: Data Data Completed and Pending Pending studies at discharge: Pending at discharge 05/12/22 12:19 Surgical [PTH] Routine Labs on day of discharge: Laboratory Results - last 24 hr 05/12/22 07:35 Urine Test NEGATIVE Discharge Plan Discharge Anticipated Discharge Date/Time: 05/13/22 10:57 Patient Disposition: Home, Self-Care Discharge Diagnosis: s/p sleeve gastrectomy Referrals: Quentin Lozoya MANAGER ASSESSMENT-BC [Primary Care Provider] - 1 Week Discharge Medications: Continued loratadine 10 mg Tablet 10 mg PO DAILY ondansetron HCl 4 mg tablet 4 mg PO Q12H PRN (Reason: Nausea And Vomiting) fluoxetine 40 mg capsule 40 mg PO DAILY dextroamphetamine-amphetamine 10 mg tablet 1 tab PO BID pantoprazole 40 mg tablet,delayed release (DR/EC) 40 mg PO DAILY Qty: 30 2RF sucralfate 100 mg/mL suspension 10 ml PO BID Qty: 400 2RF Discontinued cyanocobalamin (vitamin B-12) 250 mcg tablet 250 mcg PO DAILY Qty: 30 6RF hydrochlorothiazide 12.5 mg tablet 12.5 mg PO DAILY 90 Days Qty: 90 0RF cholecalciferol (vitamin D3) 125 mcg (5,000 unit) capsule 125 mcg PO DAILY multivitamin [Daily Multi-Vitamin] Tablet 1 tab PO DAILY Discharge Orders: Discharge Order (Routine); Ordered 05/13/22 Ordered By: Dudley Peralta Activity on Discharge: No heavy lifting Stand Alone Forms: Patient Portal Discharge page Care Plan Goals: weight loss Health Concerns: morbid obesity Plan of Treatment: No tub baths, sex or returning to work until discussed at first post op appointment. No exercise, alcohol, tobacco or illegal drug use. Continue to use incentive spirometer hourly while awake. Walk in home for 5- 10 minutes every 2 hours during the first week. Continue phase 1 diet today and start phase 2 diet tomorrow morning. Follow all instructions in the bariatric handbook and call with any questions. 1. Please call your doctor or come back to the emergency room should any new symptoms arise. 2. You will receive a courtesy call from [facility] 24-48 hours after discharge. 3. Activity: abstain from alcohol, practice limited stair climbing, no bending, no driving, no exercise, no illicit substances, no lifting, no sex, no tub bath, no work. 4. Diet: continue as discussed with bariatric team.. 5. Dressing Change/Wound Care: Do not change or remove surgical dressings unless they are wet or soiled. 6. Call your doctor if: - Your temperature exceeds 101.5 F - You experience excessive pain or swelling - You have an unexpected reaction to medication - You have excessive bleeding - You experience continued vomiting/nausea - Your incision begins to separate - Your incision shows signs of infection such as increased redness, swelling, excessive pain, heat, or drainage (light blood or clear fluid is normal) 7. General instructions: No lifting greater than 5 lbs for the next 4 weeks[address] driving within 24 hours of taking narcotic pain medications. If you do not move your bowels in the next 2 days, please take milk of magnesia over the counter. Please follow the post op diet and do not advance your diet until you are seen in the office in about 2 weeks. Please walk around your home every hour or two to prevent blood clots from forming in your legs. You do not need to wake from sleeping to walk. Please sleep in a bed or couch to prevent kinking at the hips and knees. Please take your incentive spirometer (your lung security lead) home with you and use it for the next few days to prevent pneumonias. You may shower, no hot tubs, baths or swimming pools. Please call the office with any questions or concerns such as increasing abdominal pain, fever, chills, shortness of breath, chest pain, leg pain or swelling, or redness or drainage from your incisions. Do not hesitate to contact the office with any questions at . The patient's medical history has been reviewed and they are considered low risk for post op DVT and therefore DVT prophylaxis is not considered necessary. Travel after surgery was reviewed. The patient has not disclosed any travel plans during the first 30 days after surgery and they have been advised that within the first 30 days after surgery any bus, plane, train or car travel over 2 hours in duration is contraindicated due to the possibility of developing blood clots from immobility. Any travel, needs to include periods of ambulation of 10 minutes in duration every 2 hours. The patient was instructed to discuss any plans for travel during this period with their bariatric surgeon. Assessment: stable, post op sleeve gastrectomy
[2022-05-12] MEDS: Famotidine/PF 20 MG/2 ML VIAL IVPUSH ×2 (13:30→21:53)
[2022-05-12 13:49] LABS: Hemoglobin 12.9 g/dl (12.0-16.0)
[2022-05-12] MEDS: Metoclopramide HCl 10 MG/2 ML VIAL IVPUSH (14:00)
[2022-05-12 14:04] LABS: Anion Gap 17 (12-20); Blood Urea Nitrogen 10 mg/dL (9-16); Carbon Dioxide 23 mmol/L (22-29); Chloride 101 mmol/L (96-108); Creatinine Clr Calc Pharmacy 163.9; Estimated Glomerular Filt Rate > 60; Glucose Random 139 mg/dL (60-115); Potassium 3.7 mmol/L (3.3-5.1); Sodium 137 mmol/L (135-145)
[2022-05-12] MEDS: Lactated Ringers 1,000 ML 100 ML IVCONT (14:12)
[2022-05-12] MEDS: ondansetron HCL 4 MG/2 ML VIAL IVPUSH (21:53)
[2022-05-13] MEDS: 0.9 % Sodium Chloride Flush 3 ML SYRINGE IVFLUSH ×2 (00:26→08:18)
[2022-05-13] MEDS: Lactated Ringers 1,000 ML 100 ML IVCONT (00:27)
[2022-05-13 04:11] VITALS: BP 135/75; PULSE 73; RESP 18; TEMP 36; O2SAT 96
[2022-05-13] MEDS: ondansetron HCL 4 MG/2 ML VIAL IVPUSH (05:30)
[2022-05-13 06:26] LABS: MANUAL DIFF FLAG NO
[2022-05-13 06:33] LABS: Basophils Percent Auto 0.1 % (0-2); Eosinophils Percent Auto 0.1 % (0-4); Hematocrit 36.5 % (37.0-47.0); Hemoglobin 12.5 g/dl (12.0-16.0); Imm Gran Abs Auto 0.03 X10*3/uL (0.00-0.03); Imm Gran Pct Auto 0.3 % (0.0-0.4); Lymphocytes Absolute Auto 0.9 X10*3/uL (1.2-4.9); Lymphocytes Percent Auto 8.8 % (20-40); Mean Corpuscular HGB Conc 34.2 g/dl (31.0-35.0); Mean Corpuscular Hemoglobin 30.6 pg (27.0-33.0); Mean Corpuscular Volume 89.2 fL (80.0-98.0); Mean Platelet Volume 10.9 fL (9.4-12.3); Monocytes Absolute Auto 0.6 X10*3/uL (0.1-1.2); Monocytes Percent Auto 5.6 % (2-11); Neutrophils Absolute Auto 9.1 x10*3/uL (2.0-8.3); Neutrophils Percent Auto 85.1 % (45-73); Platelet Count 369 X10*3/uL (160-400); Red Blood Count 4.09 X10*6/uL (4.20-5.50); Red Cell Distribution Width 13.2 % (11.0-16.0); White Blood Count 10.6 X10*3/uL (4.8-10.8)
[2022-05-13 07:07] LABS: Anion Gap 18 (12-20); Blood Urea Nitrogen 8 mg/dL (9-16); Carbon Dioxide 22 mmol/L (22-29); Chloride 101 mmol/L (96-108); Estimated Glomerular Filt Rate > 60; Glucose Random 116 mg/dL (60-115); Potassium 3.6 mmol/L (3.3-5.1); Sodium 137 mmol/L (135-145)
[2022-05-13] MEDS: Amphetamine Mixed Salts 10 MG TABLET PO (08:18)
[2022-05-13] MEDS: Famotidine/PF 20 MG/2 ML VIAL IVPUSH (08:18)
[2022-05-13] MEDS: FLUoxetine HCl 20 MG CAPSULE 40 MG PO (08:19)
--- NOTE | 2022-05-13 08:30 | MHC.CM.PN ---
HOME TODAY - SELF CARE TRANSPORTATION PREVIOUSLY ARRANGED. RN AWARE OF PLAN.
[2022-05-13 09:00] VITALS: BP 121/66; PULSE 82; RESP 16; TEMP 36.6; O2SAT 96
[2022-05-13 09:48] VITALS: O2SAT 96
--- NOTE | 2022-05-13 14:50 | HO.POSTANES ---
Post Anesthesia Evaluation Post Anesthesia Evaluation Vital Signs: Vital Signs Temp Pulse Resp BP Pulse Ox O2 Del Method 05/13/22 09:48 96 Room Air 05/13/22 09:00 97.8 F 82 16 121/66 96 Room Air 05/13/22 04:11 96.8 F 73 18 135/75 96 Room Air Anesthesia: General Endotracheal-GETA Mental Status: Awake Pain Control: Satisfactory Nausea/Vomiting: None Hydration: Adequate Anesthesia-Related Issues: No Anes. Related Issues
== END 2022-05-13 13:20 | disposition home or self-care (01) | DRG 403 ==
LOC: HO.SSSA 08:15 → HO.S3 16:48
PROVIDERS: Anesthesiology; Physician Assistant; Physician Assistant Surgical; Admitting Provider Surgery; PCP Nurse Practitioner Family; Visit Provider Surgery
PROC: 0DB64Z3 Excision of Stomach, Percutaneous Endoscopic Approach, Vertical (ICD-10-PCS; CPT 43845; principal; 2022-05-12 10:20)
DX: E66.01 Morbid (severe) obesity due to excess calories (principal); F50.81 Binge eating disorder; K74.00 Hepatic fibrosis, unspecified; F90.9 Attention-deficit hyperactivity disorder, unspecified type; M54.50 Low back pain, unspecified; G47.33 Obstructive sleep apnea (adult) (pediatric); F32.A Depression, unspecified; F41.9 Anxiety disorder, unspecified; Q43.3 Congenital malformations of intestinal fixation; Z68.43 Body mass index [BMI] 50.0-59.9, adult; G47.30 Sleep apnea, unspecified; K80.20 Calculus of gallbladder without cholecystitis without obstruction; I10 Essential (primary) hypertension; N87.0 Mild cervical dysplasia; Z20.822 Contact with and (suspected) exposure to COVID-19; Z88.0 Allergy status to penicillin; Z88.8 Allergy status to other drugs, medicaments and biological substances; Z79.899 Other long term (current) drug therapy
CPT/HCPCS: 43775; 43659; 36415; 80048; 80053; 80061; 81001; 81025; 83036; 83525; 84443; 85014; 85018; 85025; 85610; 85730; 86140; 86850; 86900; 86901; 87635; 88307; 88342; A4649; C9088; J0131; J1100; J1170; J1956; J2250; J2370; J2405; J2550; J2765; J2795; J3010

== ENCOUNTER → 2022-08-17 09:55 | Outpatient (BNVA) | payer OTHER, SELFPAY | PROVIDERS: PCP Nurse Practitioner Family; Visit Provider Physician Assistant Surgical | DX: E66.01 Morbid (severe) obesity due to excess calories (principal) ==

== ENCOUNTER 2022-08-23 11:56 | Emergency (ER) | payer OTHER, SELFPAY ==
--- NOTE | ~2022-08-23 | XR_ITS ---
EXAMINATION: RIGHT FOOT AND RIGHT ANKLE. CLINICAL INFORMATION: Fall, right ankle pain and swelling COMPARISON: None TECHNIQUE: 3 views right foot and 2 views right ankle. FINDINGS: Right ankle: There is moderate lateral malleolar soft tissue swelling. Ankle mortise and subtalar joints are normal. No visible acute fracture, dislocation or subluxation seen. Right foot: There is no visible acute fracture, dislocation or subluxation. The soft tissues are normal. XR/XR foot RT min 3V IMPRESSION: 1. Moderate lateral malleolar soft tissue swelling. No visible acute fracture or dislocation seen. 2. Unremarkable right foot exam.
--- NOTE | ~2022-08-23 | XR_ITS ---
EXAMINATION: RIGHT FOOT AND RIGHT ANKLE. CLINICAL INFORMATION: Fall, right ankle pain and swelling COMPARISON: None TECHNIQUE: 3 views right foot and 2 views right ankle. FINDINGS: Right ankle: There is moderate lateral malleolar soft tissue swelling. Ankle mortise and subtalar joints are normal. No visible acute fracture, dislocation or subluxation seen. Right foot: There is no visible acute fracture, dislocation or subluxation. The soft tissues are normal. XR/XR ankle RT 2V IMPRESSION: 1. Moderate lateral malleolar soft tissue swelling. No visible acute fracture or dislocation seen. 2. Unremarkable right foot exam.
--- NOTE | 2022-08-23 12:26 | ED.LOWEXIN ---
HPI - Extremity Injury (Lower) General Chief Complaint: Extremity Injury, Lower Stated Complaint: R ankle inj/COVID+ Time Seen by Provider: 08/23/22 13:27 Source: patient Mode of arrival: ambulatory History of Present Illness HPI Narrative: 37 yo F w/PMHx ADHD, anxiety, depression, sleep apnea, COVID+, presenting to the ED c/o R ankle pain and swelling s/p trip and fall down 2-3 stairs at the [facility] [employer]. Denies symptoms prior to fall. Has been minimally ambulatory since incident. Denies numbness, tingling, weakness, injury to the area. MD complaint: ankle injury and foot injury Onset (ago): hour(s) Related Data Home Medications Medication Instructions Recorded Confirmed fluoxetine 40 mg capsule 40 mg PO DAILY 01/06/21 08/17/22 loratadine 10 mg tablet 10 mg PO DAILY 05/02/22 08/17/22 hydrochlorothiazide 12.5 mg tablet 12.5 mg PO DAILY 05/23/22 08/17/22 dextroamphetamine-amphetamine 20 1 tab PO DAILY 06/08/22 08/17/22 mg tablet sucralfate 100 mg/mL oral 10 ml PO BID 07/20/22 08/17/22 suspension Allergies Allergy/AdvReac Type Severity Reaction Status Date / Time apple [Apple] Allergy Severe itchy Verified 08/17/22 10:21 throat severe becerril Allergy Severe severe Verified 08/17/22 10:21 itchy throat pecan nut Allergy Intermediate itchy Verified 08/17/22 10:21 throat penicillin V AdvReac Severe GI upset Verified 08/17/22 10:21 prednisone AdvReac Intermediate diarrhea Verified 08/17/22 10:21 fruit skins Allergy Severe itchy Uncoded 06/08/22 10:57 throat Review of Systems Review of Systems: Constitutional: No Weight loss, No Fever, No Chills ENT/Mouth: No Ear Pain, No Nasal Congestion, No sore throat, No Rhinorrhea, No Swallowing Difficulty Cardiovascular: No Chest Pain, No SOB Respiratory: No Cough, No Sputum, No Wheezing Gastrointestinal: No Nausea, No Vomiting, No Diarrhea, No Constipation, No Abdominal pain Genitourinary: No Dysuria, No Urinary Frequency, No Hematuria, No Flank Pain Musculoskeletal: + joint pain, No Myalgias, + Joint Swelling Skin: No Skin Lesions, No rash Neuro: No Weakness, No Numbness, No Paresthesias Yes all other systems are reviewed and are negative Constitutional: Constitutional: Reports as per [facility] Past Medical History Attestation statement: The following information was validated with the patient. Medical History ADHD Anxiety ASCUS with positive high risk HPV Cholelithiasis LUCITA I (cervical intraepithelial neoplasia I) Cough due to JEMMA inhibitor Depression Family history of breast cancer in female GERD (gastroesophageal reflux disease) HTN (hypertension) Lower back pain Moderate binge-eating disorder Morbid obesity Physical exam Physical exam Physical exam Pre-op evaluation Premenstrual dysphoric disorder Reactive airway disease Recurrent cough Sleep apnea Sleep apnea in adult Surgical History [place] teeth extracted Family History Family History Mother Cancer of thyroid Guillain Leon? syndrome Hypertension Anemia Brother Lupus Maternal Grandmother Colon cancer Breast cancer Father Hypertension High cholesterol Diabetes 1.5, managed as type 2 Heart problem Brother No problems noted. Social History Social History Household Members: Spouse Housing: Apartment Are you a primary care nurse rn to a significant other at home: No Do you presently have visiting nurse or other home services: No Alcohol intake: former Patient Tobacco Use Status: Never used Tobacco e-Cigarette/Vaping Use: Never Used Substance Use Type: Marijuana Advance Directives: No Advance Directives Information Provided: No Current occupational status: employed Cognitive needs: No Hearing needs: No Vision needs: No Physical Exam Vital Signs: Vital Signs: Last Vital Signs Temp 97.1 F 08/23/22 12:27 Pulse 88 08/23/22 12:27 Resp 20 08/23/22 12:27 BP 127/88 08/23/22 12:27 Pulse Ox 98 08/23/22 12:27 O2 Del Method 08/23/22 12:27 BMI result Body Mass Index 41.0 Const: General: cooperative, healthy appearing and no acute distress Orientation/consciousness: patient oriented x3 Limitations: no limitations HEENT: Head: Yes normal to inspection and Yes atraumatic Ears: hearing grossly normal bilaterally General nose exam: Normal external nose present Face and sinus: Yes normal facial exam Eyes: General: appearance normal, both eyes and all related structures EOM: EOMs intact bilaterally Neck: Neck: Yes normal visual inspection and Yes no meningeal signs Resp: Effort & Inspection: normal respiratory effort and no respiratory distress Cardio: Rate: regular rate Peripheral pulses: Peripheral pulses 2+ throughout Skin: Rashes: no rashes Wounds: no wounds Neuro: General: patient oriented x3, tone normal and no meningeal signs Gait exam (Neuro): Normal gait present Extrem: Other: Right foot/ankle with noted swelling greatest to lateral malleolus. No erythema/warmth. Neurovascularly intact. Limited ROM secondary to pain. Knee/proximal tib/fib nontender Course Course Course Narrative: RME--37 yo F w/PMHx ADHD, anxiety, depression, sleep apnea, COVID+, presenting to the ED c/o R ankle pain and swelling s/p trip and fall down 2-3 stairs at the [facility] [employer]. Has been minimally ambulatory since incident. Denies sx prior to fall R ankle/foot swelling and ttp noted to lateral malleolus. NV intact. Concern for fx vs sprain XR ordered in triage XR foot RT min 3V IMPRESSION: 1.? Moderate lateral malleolar soft tissue swelling. No visible acute fracture or dislocation seen. 2.? Unremarkable right foot exam. >>aircast and crutches supplied Results discussed with patient including worrisome signs and symptoms and strict return precautions, and when to return to the emergency department. They verbalized understanding and feel safe for discharge at this time. Medical Decision Making Medical Decision Making MDM Narrative: 37 yo F w/PMHx ADHD, anxiety, depression, sleep apnea, COVID+, presenting to the ED c/o R ankle pain and swelling s/p trip and fall down 2-3 stairs at the [facility] [employer]. On exam vital signs stable, NAD, nontoxic appearing, physical exam as above. Concern for ankle/foot fracture versus sprain Plan: X-rays Please refer to course for remaining clinical decision making, interpretation of labs/imaging results, and discussions with consultants and/or family members. Differential Diagnosis Differential Diagnoses: The differential diagnosis associated with the presentation includes as above Radiology Impression Discussion of test interpretation with radiology: I have reviewed the radiologist's reading. Discharge Plan Discharge Clinical Impression: Ankle sprain Patient Disposition: Home, Self-Care Instructions: Ankle Sprain (ED) Additional Instructions: You sprained her ankle, there is no fracture on x-ray. Wear Aircast at home as needed for comfort and stability. Use crutches as needed Ice and elevate Take Tylenol and Motrin Follow-up with her doctor If symptoms persist or worsen return to the emergency department Prescriptions: No Action loratadine 10 mg Tablet 10 mg PO DAILY fluoxetine 40 mg capsule 40 mg PO DAILY hydrochlorothiazide 12.5 mg tablet 12.5 mg PO DAILY dextroamphetamine-amphetamine 20 mg tablet 1 tab PO DAILY sucralfate 100 mg/mL suspension 10 ml PO BID Referrals: [facility] [place] [facility] [Provider Group] - 1 week
[2022-08-23 12:27] VITALS: BP 127/88; PULSE 88; RESP 20; TEMP 36.2; O2SAT 98; BMI 41.0
== END 2022-08-23 14:05 | disposition home or self-care (01) ==
PROVIDERS: Emergency Provider Emergency Medicine; PCP Nurse Practitioner Family
DX: S93.401A Sprain of unspecified ligament of right ankle, initial encounter (principal); W10.8XXA Fall (on) (from) other stairs and steps, initial encounter; Y93.89 Activity, other specified; Y92.538 Other ambulatory health services establishments as the place of occurrence of the external cause; Y99.9 Unspecified external cause status
CPT/HCPCS: 73600; 73630; 99282; 99283

== ENCOUNTER → 2022-09-02 10:44 | Outpatient (BNVA) | payer OTHER, SELFPAY | PROVIDERS: PCP Nurse Practitioner Family; Visit Provider Physician Assistant | DX: Z13.89 Encounter for screening for other disorder (principal) ==

== ENCOUNTER → 2022-09-27 13:18 | Outpatient (BNVA) | payer OTHER, SELFPAY | PROVIDERS: PCP Nurse Practitioner Family; Visit Provider Physician Assistant Surgical | DX: Z13.89 Encounter for screening for other disorder (principal) ==

== ENCOUNTER 2022-09-30 07:00 | Outpatient (RCR) | payer OTHER, SELFPAY ==
--- NOTE | 2022-09-09 08:10 | MHC.PT.EP ---
[facility] [place] Office [place] Office [place] Office [address] [place] Green [address] [phone] F: [phone] F: [phone] F: [phone] F: [phone] Physical Therapy Plan of Care Date of Evaluation: Date of Surgery: Diagnosis: sprain of unspecified ligament R ankle Assessment: 37 y/o F referred to PT with R ankle sprain. She sustained R ankle sprain 08/23/22 when she fell down last 2 stairs at home. She had immediate pain and swelling and went to ED. Imaging taken and negative for fx. She was given stirrup aircast for week one and then a walking boot for week 2 by ortho. She is now ambulating without anything but has a lace up brace.She has a hisotry for ankle sprains and poor balance. Currently she presents with decreased R ankle ROM, decreased R ankle strength, increased pain and swelling, impaired balance and impaired gait pattern. Recommend PT 2x/week for 5 weeks to address impairments, implement HEP, and optimize functional mobility. Frequency and Duration: The patient will be seen 2x/week for 5 weeks Short Term Goals: 3 weeks Compliant with HEP Improve B gastroc length to 8* to faciliate gait Retirement Goals: 5 weeks I with HEP and self management of sx Pt will improve R ankle dorsiflexion to 10* to faciliate stair management Pt will demosntrate R SLS to 20Seconds with good ankle control to faciliate gait Treatment Plan: Modalities to reduce pain, spasms and effusion. Manual therapy to restore motion and function. Therapeutic exercise to improve strength and flexibility. Neuromuscular re-education for posture and balance. Therapeutic activities to return to functional activities of daily living. Electronically signed by: Mei Lopez PT Please sign and return to therapist. Thank you for your referral.
--- NOTE | 2022-10-07 11:00 | MHC.PT.DC ---
[facility] [place] Office [place] Office [place] Office [address] [place] Green [address] [phone] F: [phone] F: [phone] F: [phone] F: [phone] Physical Therapy Discharge Report Diagnosis: sprain of unspecified ligament R ankle Date of Surgery: Date of Evaluation: 09/09/22 Date of Discharge: 10/07/22 Treatments to Date: 6 Cancellations to Date: 0 No Shows to Date: 2 Discharge Status: Discharge Summary: She has had two consecutive no show visits and is d/c secondary to noncompliance with scheduling policy. At time of last visit, she was I with HEP and making progress with ankle mobility. Electronically signed by: Mei Lopez PT Please sign and return to therapist. Thank you for your referral.
== END 2022-10-07 11:01 | disposition home or self-care (01) ==
LOC: HO.PTCHIC 07:00
PROVIDERS: PCP Nurse Practitioner Family; Visit Provider Physician Assistant
DX: S93.401A Sprain of unspecified ligament of right ankle, initial encounter (principal)
CPT/HCPCS: 97110; 97112; 97161

== ENCOUNTER → 2022-09-30 14:11 | Outpatient (BNVA) | payer OTHER, SELFPAY | PROVIDERS: PCP Nurse Practitioner Family; Referring Provider Nurse Practitioner Family; Visit Provider Surgery | DX: Z13.89 Encounter for screening for other disorder (principal) ==

== ENCOUNTER 2022-10-28 10:27 | Outpatient (REF) | payer OTHER, SELFPAY ==
[2022-10-28 10:30] VITALS: BP 146/85; PULSE 78; RESP 18; TEMP 36.6; O2SAT 97; BMI 37.3
--- NOTE | 2022-10-28 10:32 | P.OP_ITS ---
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 There has been no painful redness, drainage or prior attempts at excision. The patient underwent successful bariatric surgery and she has lost weight, the nodule has become more symptomatic, consequently she wanted to have it removed. The inhere nt risks of bleeding, infection, recurrence, need for another procedure in the event of a complication were all discussed with the patient the option of continued observation was offered but declined. ] Procedure: [The patient was identified in the minor procedure room and appropriate time-out performed. The operative site was marked by myself in she was positioned in left lateral decubitus position. Betadine was painted onto the skin over the skin micheal and allowed to dry. The patient was then draped in the usual manner for surgery. Local was infiltrated with excellent effect. Under loupe magnification, the I did not appreciate any evidence of a central pore and there continued to be no erythema, fluctuance or tenderness. Is a made and skin incision, green, purulence was expressed immediately from the skin incision. The purulence was contained in expressed into multiple surgical sponges and scissors used to circumferentially dissect the cyst wall. Hemostasis was obtained with electrocautery. After complete removal of the cyst wall, the subcutaneous tissues were copiously irrigated with sterile saline until it returned clear and the area inspected for hemostasis. At this point, the operative field in my instruments were swapped out and my gloves changed. Additional irrigation was instilled and the operative site inspected for both hemostasis, removal of infected sebum and any debris. Since none was identified, intermediate 3-0 polypropylene sutures were used to approximate the skin and subcutaneous tissues, the area washed and dried and bacitracin applied. Patient tolerated the procedure well. The change of plans regarding the procedure was communicated with her during the procedure. The increased risk for recurrence and infection were discussed as well as the symptoms. Patient tolerated the procedure well. She will follow up with me next week and has the office phone number to contact me over the weekend if she has redness, pain or unexpected worrisome symptoms of fever.]
--- NOTE | 2022-10-28 11:44 | MHC.SHP ---
Pre-Procedural Eval Section A Date of Service: 10/28/22 The patient is an INPATIENT: No The History & Physical has been completed within 30 days and I have reviewed it.: Yes Section B Chief Complaint: Benign lipomatous neoplasm, unspecified Allergies: Allergies Allergy/AdvReac Type Severity Reaction Status Date / Time apple [Apple] Allergy Severe itchy Verified 09/30/22 14:30 throat severe becerril Allergy Severe severe Verified 09/30/22 14:30 itchy throat pecan nut Allergy Intermediate itchy Verified 09/30/22 14:30 throat penicillin V AdvReac Severe GI upset Verified 09/30/22 14:30 prednisone AdvReac Intermediate diarrhea Verified 09/30/22 14:30 fruit skins Allergy Severe itchy Uncoded 09/30/22 14:30 throat Plan I have reviewed the history and physical and performed a pertinent physical examination on my patient. No changes have occurred unless specified. Time Spent With Patient Time: Total time managing care of this patient today ____ minutes.
== END 2022-10-28 10:28 | disposition home or self-care (01) ==
LOC: HO.MS 10:27
PROVIDERS: PCP Nurse Practitioner Family; Visit Provider Surgery
PROC: (CPT 11404; principal; 2022-10-28 11:00)
DX: D17.1 Benign lipomatous neoplasm of skin and subcutaneous tissue of trunk (principal)
CPT/HCPCS: 11404; 87070; 87205; 88304

== ENCOUNTER 2022-11-04 13:33 | Outpatient (REF) | payer OTHER, SELFPAY | END 2022-11-04 13:34 | disposition home or self-care (01) | LOC: CF 13:33 | PROVIDERS: PCP Nurse Practitioner Family; Visit Provider Surgery | DX: D17.9 Benign lipomatous neoplasm, unspecified (principal); L08.9 Local infection of the skin and subcutaneous tissue, unspecified | CPT/HCPCS: 87070; 87205 ==

== ENCOUNTER 2022-11-08 07:38 | Outpatient (REF) | payer OTHER, SELFPAY ==
[2022-11-08 11:31] LABS: MANUAL DIFF FLAG NO
[2022-11-08 11:37] LABS: Appearance Urine Turbid; Color Urine Dark Yellow; Glucose Urine UA Negative (Negative); Leukocyte Esterase Urine Small (1+) (Negative); Nitrite Urine Positive (Negative); PH 5.5 (5.0-9.0); Specific Gravity - Urine >= 1.030 (1.005-1.025); UMIC TRIGGER UACC YES; Urine Blood Trace (Negative); Urine Ketones 15 mg/dL (Negative); Urine Protein 30 (1+) mg/dL (Neg-Trace)
[2022-11-08 11:47] LABS: Basophils Percent Auto 0.5 % (0-2); Eosinophils Absolute Auto 0.2 X10*3/uL (0.0-0.4); Eosinophils Percent Auto 4.2 % (0-4); Hematocrit 38.1 % (37.0-47.0); Hemoglobin 12.7 g/dl (12.0-16.0); Imm Gran Abs Auto 0.01 X10*3/uL (0.00-0.03); Imm Gran Pct Auto 0.2 % (0.0-0.4); Immature Retic Fraction 5.5 % (3.0-15.9); Lymphocytes Absolute Auto 1.6 X10*3/uL (1.2-4.9); Lymphocytes Percent Auto 28.8 % (20-40); Mean Corpuscular HGB Conc 33.3 g/dl (31.0-35.0); Mean Corpuscular Hemoglobin 31.8 pg (27.0-33.0); Mean Corpuscular Volume 95.5 fL (80.0-98.0); Mean Platelet Volume 11.5 fL (9.4-12.3); Monocytes Absolute Auto 0.4 X10*3/uL (0.1-1.2); Monocytes Percent Auto 7.3 % (2-11); Neutrophils Absolute Auto 3.2 x10*3/uL (2.0-8.3); Platelet Count 299 X10*3/uL (160-400); Red Blood Count 3.99 X10*6/uL (4.20-5.50); Red Cell Distribution Width 13.2 % (11.0-16.0); Retic HGB Equivalent 36.4 pg (30.0-35.0); White Blood Count 5.5 X10*3/uL (4.8-10.8)
[2022-11-08 11:55] LABS: Estimated Average Glucose 91 mg/dL; Hemoglobin A1c % 4.8 %
[2022-11-08 11:56] LABS: Bacteria Urine 2+ (None Seen); Calcium Oxalate Crystals Urine Present; Hyaline Casts Urine 0-2 /LPF (0-2); RBC Urine 0-2 /HPF (0-2); UACC Culture Trigger YES; WBC Urine 0-5 /HPF (0-5)
[2022-11-08 12:21] LABS: Alanine Aminotransferase 13 U/L (0-31); Albumin Level 3.9 g/dL (3.5-5.0); Alkaline Phosphatase 59 U/L (39-117); Anion Gap 12 (12-20); Aspartate Amino Transferase 16 U/L (5-31); Bilirubin Total 1.2 mg/dL (0.0-1.0); Blood Urea Nitrogen 13 mg/dL (9-16); C Reactive Protein 0.19 mg/dL (< or = 0.50); Carbon Dioxide 28 mmol/L (22-29); Chloride 104 mmol/L (96-108); Cholesterol 227 mg/dL; Estimated Glomerular Filt Rate > 60; Glucose Fasting 83 mg/dL (60-99); HDL Cholesterol 37 mg/dL; Iron 119 mcg/dL (30-160); LDL Cholesterol Calculated 170 mg/dl; Percent Iron Saturation 46 % (15-50); Potassium 3.3 mmol/L (3.3-5.1); Sodium 141 mmol/L (135-145); Total Iron Binding Capacity 256 mcg/dL (228-428); Total Protein 6.5 g/dL (6.5-8.0); Triglycerides 103 mg/dL; Unsaturated Iron Binding 137 ug/dL
[2022-11-08 12:31] LABS: Insulin 6 uU/mL (2-29)
[2022-11-08 12:59] LABS: Ferritin 134 ng/mL (10-122); Folate 2.8 ng/mL (> or = 4.0); TSH reflex Free T4 1.74 uIU/mL (0.32-4.0); Vitamin B12 358 pg/mL (200-900)
[2022-11-09 14:24] LABS: Calcium (PTHI) 9.6 mg/dL (8.6-10.2); PTHI 67 pg/mL (16-77)
[2022-11-12 01:18] LABS: Zinc 63 mcg/dL (60-130)
[2022-11-14 00:58] LABS: Vitamin A 36 mcg/dL (38-98)
[2022-11-15 15:38] LABS: Vitamin B1 8 nmol/L (8-30)
== END 2022-11-08 07:39 | disposition home or self-care (01) ==
LOC: HO.HMGCLDS 07:38
PROVIDERS: Absent Provider Physician Assistant Surgical; PCP Nurse Practitioner Family; Visit Provider Nurse Practitioner Family
DX: R53.83 Other fatigue (principal); Z28.39 Other underimmunization status; Z98.84 Bariatric surgery status; E66.9 Obesity, unspecified; E78.5 Hyperlipidemia, unspecified; R53.1 Weakness
CPT/HCPCS: 36415; 80053; 80061; 81001; 82306; 82607; 82728; 82746; 83036; 83525; 83540; 83970; 84425; 84443; 84590; 84630; 85025; 85045; 86140; 86787; 87086

== ENCOUNTER → 2022-11-11 12:45 | Outpatient (BNVA) | payer OTHER, SELFPAY | PROVIDERS: PCP Nurse Practitioner Family; Visit Provider Physician Assistant Surgical | DX: Z13.89 Encounter for screening for other disorder (principal) ==

== ENCOUNTER → 2022-11-14 08:42 | Outpatient (BNVA) | payer OTHER, SELFPAY | PROVIDERS: PCP Nurse Practitioner Family; Visit Provider Surgery | DX: Z13.89 Encounter for screening for other disorder (principal) ==

== ENCOUNTER → 2023-01-20 14:16 | Outpatient (BNVA) | payer OTHER, SELFPAY | PROVIDERS: PCP Nurse Practitioner Family; Referring Provider Nurse Practitioner Family; Visit Provider Physician Assistant Surgical ==